=== PATIENT | female | born 1940 | race Asian ===

== ENCOUNTER 2018-08-16 20:09 | Emergency (ER) | payer OTHER, MEDICARE ==
[~2018-08-16] VITALS: Ht 167.6 cm; Wt 56.2 kg
[2018-08-16 20:33] VITALS: BP_SYST 177
[2018-08-16] MEDS ORDERED: DIPH-TET-PERTUS Vaccine 0.5 ML VIAL (ADACEL) I.M. ONE (20:45)
[2018-08-16] MEDS ORDERED: LIDOCAINE 1% 10 MG/ML, 20 ML MDV INJ ONE (20:45)
[2018-08-16] MEDS ORDERED: BACITRACIN 1 GM OINT TP ONE (22:23)
[2018-08-16 22:43] VITALS: BP_SYST 176
== END 2018-08-16 22:43 | disposition home or self-care (01) ==
LOC: SED 20:09
DX: S02.31XA Fracture of orbital floor, right side, initial encounter for closed fracture (principal); S02.40CA Maxillary fracture, right side, initial encounter for closed fracture; R03.0 Elevated blood-pressure reading, without diagnosis of hypertension; W11.XXXA Fall on and from ladder, initial encounter; Y93.89 Activity, other specified; Y92.89 Other specified places as the place of occurrence of the external cause; Y99.8 Other external cause status
CPT/HCPCS: 12011; 70450; 70486; 73130; 90471; 90715; 99284; J2001